=== PATIENT | male | born 1990 | race Caucasian/White ===

== ENCOUNTER 2020-02-03 13:48 | Emergency (ER) | payer MEDICAID, OTHER ==
--- NOTE | 2020-02-03 13:58 | ED Physician Documentation ---
PD HPI LOWER EXT INJURY - Stated complaint Stated Complaint: RT ANKLE INJURY - Chief complaint Chief Complaint: Trauma Ext - History obtained from History obtained from: Patient (He rolled his ankle 3 weeks ago, subsequently did it again yesterday. He has very mild pain over the proximal right metatarsal on the fifth. No other injuries. Needs a note for work. Pain is mild. Ambulation is fairly normal.) Review of Systems Constitutional: reports: Reviewed and negative Ears: reports: Reviewed and negative Nose: reports: Reviewed and negative PD PAST MEDICAL HISTORY - Past Medical History Cardiovascular: None Respiratory: None Endocrine/Autoimmune: None GI: None : None HEENT: None Psych: None Musculoskeletal: None Derm: None - Past Surgical History Past Surgical History: Yes - Present Medications Home Medications: Ambulatory Orders Medication Instructions Recorded Confirmed Cephalexin [Keflex] 500 mg PO QID #40 capsule 01/03/16 - Allergies Allergies/Adverse Reactions: Allergies Allergy/AdvReac Type Severity Reaction Status Date / Time No Known Drug Allergies Allergy Verified 02/03/20 13:50 - Social History Does the pt smoke?: No Smoking Status: Never smoker Does the pt drink ETOH?: Yes Does the pt have substance abuse?: No - Immunizations Immunizations are current?: Yes - POLST Patient has POLST: No PD ED PE NORMAL - Vitals Vital signs reviewed: Yes - General General: Alert and oriented X 3, No acute distress - Extremities Extremities: Other (His gait is normal. He has mild tenderness over the proximal fifth metatarsal of the right foot. No ankle tenderness except for very mildly over the ATFL but not the malleoli.) - Psych Psych: Normal mood, Normal affect Results - Vitals Vitals: Vital Signs - 24 hr 02/03/20 02/03/20 13:50 14:54 Temperature 36.5 C Heart Rate 69 78 Respiratory 16 19 Rate Blood Pressure 130/60 118/66 O2 Saturation 98 100 Oxygen O2 Source Room air - Rads (name of study) R foot 3v Radiology: EMP read contemporaneously (NAD) Departure - Departure Disposition: 01 Home, Self Care Clinical Impression: Right foot sprain Qualifiers: Encounter type: initial encounter Qualified Code(s): S93.601A - Unspecified sprain of right foot, initial encounter Condition: Good Record reviewed to determine appropriate education?: Yes Instructions: ED Sprain Foot Forms: Activity restrictions Discharge Date/Time: 02/03/20 15:06
--- NOTE | 2020-02-03 14:48 | XRAY Report ---
PROCEDURE: Foot 3 View RT INDICATIONS: foot injury TECHNIQUE: 3 views of the foot were acquired. COMPARISON: None FINDINGS: Bones: No fractures or dislocations. No suspicious bony lesions. Soft tissues: No tibiotalar joint effusion. Achilles tendon appears normal. IMPRESSION: No acute fracture. No osseous lesion. If symptoms and/or clinical suspicion for pathology continue, f urther assessment with repeat plain films, or advanced imaging (e.g., CT, MRI, or bone scan) is recom mended for further assessment. Reviewed by: Nory Oneal MD on 02/03/2020 2:46 PM PDT Approved by: Nory Oneal MD on 02/03/2020 2:46 PM PDT Station ID: [id number]
[2020-02-03 15:06] VITALS: BP 118/66
== END 2020-02-03 15:06 | disposition home or self-care (01) ==
LOC: ED 13:48
DX: S93.601A Unspecified sprain of right foot, initial encounter (principal); X50.1XXA Overexertion from prolonged static or awkward postures, initial encounter
CPT/HCPCS: 99282; 99283

== ENCOUNTER 2020-08-03 14:58 | Emergency (ER) | payer MEDICAID, OTHER ==
--- NOTE | 2020-08-03 15:19 | ED Physician Documentation ---
PD HPI CHEST PAIN - Stated complaint Stated Complaint: CHEST INJURY - Chief complaint Chief Complaint: Trauma Ch/Bk - History obtained from History obtained from: Patient - History of Present Illness Timing - onset: How many days ago (2) Timing - onset during: Exertion (he was pulling out heavy machinery with a winch and the cable hook slipped off the anchor it was on and snapped back into his left chest. Pain there but also feeling of uncomfortable breathing. SYmptoms continue to today.) Timing - duration: Days (2) Timing - details: Abrupt onset, Still present Quality: Aching, Dull, Pain Location: Substernal, Left chest Improved by: Rest Worsened by: Exertion, Inspiration. No: Movement, Palpation Associated symptoms: Shortness of air. No: Nausea, Feeling faint / dizzy Similar symptoms before: Has not had sx before Review of Systems Constitutional: denies: Fever, Chills Nose: denies: Rhinorrhea / runny nose, Congestion Throat: denies: Sore throat Cardiac: reports: Chest pain / pressure. denies: Palpitations, Pedal edema, Calf pain Respiratory: reports: Dyspnea. denies: Cough, Hemoptysis, Wheezing GI: denies: Abdominal Pain, Nausea, Vomiting, Diarrhea Skin: denies: Abrasion (s), Laceration (s) Musculoskeletal: denies: Neck pain, Back pain Neurologic: denies: Altered mental status, Head injury, LOC PD PAST MEDICAL HISTORY - Past Medical History Cardiovascular: None Respiratory: None Endocrine/Autoimmune: None GI: None : None HEENT: None Psych: None Musculoskeletal: None Derm: None - Past Surgical History Past Surgical History: Yes - Present Medications Home Medications: Ambulatory Orders Medication Instructions Recorded Confirmed No Known Home Medications 08/03/20 08/03/20 - Allergies Allergies/Adverse Reactions: Allergies Allergy/AdvReac Type Severity Reaction Status Date / Time No Known Drug Allergies Allergy Verified 08/03/20 15:04 - Social History Does the pt smoke?: No Smoking Status: Never smoker Does the pt drink ETOH?: Yes Does the pt have substance abuse?: No - Immunizations Immunizations are current?: Yes - POLST Patient has POLST: No PD ED PE NORMAL - Vitals Vital signs reviewed: Yes - General General: Alert and oriented X 3, No acute distress, Well developed/nourished - Neck Neck: Supple, no meningeal sign, No bony TTP, No adenopathy - Cardiac Cardiac: RRR, No murmur - Respiratory Respiratory: Clear bilaterally, Other (no chestwall tenderness nor bruising/deformity noted. ) - Abdomen Abdomen: Soft, Non tender - Derm Derm: Normal color, Warm and dry - Neuro Neuro: Alert and oriented X 3, No motor deficit, Normal speech Results - Vitals Vitals: Vital Signs - 24 hr 08/03/20 08/03/20 15:05 16:29 Temperature 37 C Heart Rate 80 62 Respiratory 16 16 Rate Blood Pressure 124/80 120/66 O2 Saturation 100 100 Oxygen O2 Source Room air - EKG (time done) 15:08 Rate: Rate (enter#) (79) Rhythm: NSR [place]: Normal Intervals: Normal CT QRS: Normal Ischemia: Normal ST segments. No: ST elevation c/w ischemia, ST depression - Rads (name of study) chest xray Radiology: Prelim report reviewed (no acute process), See rad report PD MEDICAL DECISION MAKING - ED course Complexity details: reviewed results, considered differential, d/w patient Departure - Departure Disposition: 01 Home, Self Care Clinical Impression: Chest wall contusion Qualifiers: Encounter type: initial encounter Laterality: left Qualified Code(s): S20.212A - Contusion of left front wall of thorax, initial encounter Condition: Stable Record reviewed to determine appropriate education?: Yes Instructions: ED Contusion Chest Wall Comments: Your chest xray is normal; no signs of lung injury nor rib fractures. Presume just sore in the deeper muscles. Activity as tolerated. Discharge Date/Time: 08/03/20 16:31
--- NOTE | 2020-08-03 16:10 | XRAY Report ---
PROCEDURE: Chest 2 View X-Ray INDICATIONS: struck in left chest; dyspnea TECHNIQUE: 2 view(s) of the chest. COMPARISON: Correlation is made with prior chest and ribs examination, 02/01/2015. FINDINGS: Surgical changes and devices: None. Lungs and pleura: No pleural effusions or pneumothorax. Lungs are clear. Mediastinum: Mediastinal contours are normal. Heart size is normal. Bones and chest wall: No suspicious bony abnormalities. No displaced rib fracture is detected. Soft tissues appear unremarkable. IMPRESSION: No pneumothorax or displaced rib fracture can be seen. Reviewed by: Damon Loving MD on 08/03/2020 3:08 PM [facility] Approved by: Damon Loving MD on 08/03/2020 3:08 PM [facility] Station ID: [id number]
[2020-08-03 16:29] VITALS: BP 120/66
== END 2020-08-03 16:31 | disposition home or self-care (01) ==
LOC: ED 14:58
DX: S20.212A Contusion of left front wall of thorax, initial encounter (principal); W31.89XA Contact with other specified machinery, initial encounter; Y99.0 Civilian activity done for income or pay
CPT/HCPCS: 1040M; 71046; 93005; 99283; 99284

== ENCOUNTER 2022-07-23 15:38 | Outpatient (CLI) | payer BC, MEDICAID ==
--- NOTE | 2022-08-01 07:50 | XRAY Report ---
PROCEDURE: Lumbar Spine 2 View INDICATIONS: LOW BACK PX TECHNIQUE: 3 views of the lumbar spine were acquired. COMPARISON: None. FINDINGS: Bones: 5 [id number] vertebrae are present. Trace dextrocurvature centered at the L2 level. Mild disc height loss at the L5-S1 level where there also is 2 mm retrolisthesis.. No vertebral body com pression fractures. No suspicious bony lesions. Soft tissues: Overlying bowel gas pattern is normal. No suspicious soft tissue calcifications. IMPRESSION: 1. Mild disc degeneration at the L5-S1 level where there also is grade 1 retrolisthesis. Reviewed by: BILL Nash on 08/01/2022 7:49 AM PST Approved by: Delaney Salter MD on 08/01/2022 7:49 AM PST Station ID: [id number]
== END 2022-07-23 23:59 | disposition home or self-care (01) ==
LOC: DI.N 15:38
PROVIDERS: ATTEND Registered Nurse
DX: M51.37 Other intervertebral disc degeneration, lumbosacral region (principal); M43.17 Spondylolisthesis, lumbosacral region

== ENCOUNTER 2022-11-24 21:11 | Outpatient (CLI) | payer BC ==
--- NOTE | 2022-11-25 17:16 | Ultrasound Report ---
PROCEDURE: Testicle INDICATIONS: PAIN IN LEFT TESTICLE TECHNIQUE: Real-time scanning was performed of the scrotum and testicles, with image documentation. Color and p ulse Doppler interrogation was performed of both testicles. COMPARISON: None. FINDINGS: Right: Testicle is normal in size at 4.7 x 2.7 x 2.6 cm, and homogenous in echotexture. Epididymis is normal in overall size and morphology. Trace hydrocele and mild varicoceles. Overlying scrotal sk in is normal in thickness. Left: Testicle is normal in size at 4.8 x 2.4 x 2.9 cm, and homogeneous in echotexture. Epididymis is normal in overall size and morphology. Trace hydrocele and mild varicoceles. Overlying scrotal sk in is normal in thickness. Doppler: Color and pulse Doppler demonstrate normal and symmetric arterial flow in both testicles. IMPRESSION: No torsion at time of exam. Intermittent torsion cannot be excluded. Bilateral hydroceles and varicoc eles are noted. Reviewed by: Danielle Garcia MD on 11/25/2022 5:15 PM PDT Approved by: Danielle Garcia MD on 11/25/2022 5:15 PM PDT Station ID: [id number]
== END 2022-11-24 21:12 | disposition home or self-care (01) ==
LOC: DI 21:11
PROVIDERS: ATTEND Urology
DX: N43.3 Hydrocele, unspecified (principal); I86.1 Scrotal varices

== ENCOUNTER 2024-03-31 22:58 | Emergency (ER) | payer BC ==
--- NOTE | 2024-03-31 23:16 | ED Physician Documentation ---
History of Present Illness - Stated complaint Stated Complaint: R LEG SWOLLEN - Chief complaint Chief Complaint: Ext Problem - Additonal information Additional information: 33-year-old male presents with right leg bruise. History clarified from triage notes. Patient states he has been driving long distances in the last month he noted a mildly swollen area on his anterior right thigh that became a bruise today. It is nontender. No fevers or chills. No spreading rash. No difficulty or pain moving his leg or ambulating. No history of DVT. No known family coagulation abnormalities. No lightheadedness, shortness breath, chest pain, syncope. No joint swelling. No trauma. No other new concerns. He was worried about a DVT. ROS Constitutional: no fever, no chills Eyes: no visual disturbance, no discharge Ears, Nose, Mouth, Throat: no rhinorrhea, no sore throat Cardiovascular: no chest pain, no palpitations Respiratory: no cough, no shortness of breath Gastrointestinal: no abdominal pain, no vomiting, no diarrhea Genitourinary: no dysuria, no hematuria Musculoskeletal: no back pain, no neck stiffness Skin: no rash, no wound Neurological: no focal weakness, no focal numbness PD PAST MEDICAL HISTORY - Past Medical History Cardiovascular: None Respiratory: None Endocrine/Autoimmune: None GI: None : None HEENT: None Psych: None Musculoskeletal: None Derm: None - Past Surgical History Past Surgical History: Yes - Present Medications Home Medications: Ambulatory Orders Medication Instructions Recorded Confirmed No Known Home Medications 08/03/20 08/03/20 - Allergies Allergies/Adverse Reactions: Allergies Allergy/AdvReac Type Severity Reaction Status Date / Time No Known Drug Allergies Allergy Verified 03/31/24 23:01 - Social History Does the pt smoke?: No Smoking Status: Never smoker Does the pt drink ETOH?: Yes Does the pt have substance abuse?: No - Immunizations Immunizations are current?: Yes - POLST Patient has POLST: No PD ED PE NORMAL - Free text exam Free text exam: Const: no acute distress, non toxic appearing; calm, conversant, pleasant Eyes: PERRLA, EOMI ENT: mucous membranes moist Neck: supple, non-tender Resp: no respiratory distress, clear to auscultation bilaterally Card: regular rate and rhythm, no murmurs Abd: non tender diffusely, no rigidity or rebound or guarding Back: no T or L spine tenderness, no CVA tenderness bilaterally Extrem: no deformities, no swelling bilateral lower extremities; there is a roughly 2 inch in length and 1 inch in width mild ecchymotic area to anterior right thigh that is nontender, without induration, crepitus, fluctuance; there is full range of motion of hip and knee without pain; no swelling or pain to calf or remainder of leg; no joint swelling; 2+ distal pulses; compartments soft, with fully intact strength and sensation throughout right lower extremity Neuro: ANOx4, thermodynamics teacher grossly intact, grossly intact sensation and strength all extremities Skin: no rash, warm and dry Results - Vitals Vitals: Vital Signs - 24 hr 03/31/24 23:01 Temperature 36.5 C Heart Rate 73 Respiratory 16 Rate Blood Pressure 133/80 H O2 Saturation 100 Oxygen O2 Source Room air PD Medical Decision Making - ED course ED course: This patients presentation is most suggestive of possible resolving superficial clot, without evidence of infection, with DVT far less likely. This is not consistent with fracture, muscle tear, cellulitis, necrotizing fasciitis. DVT is very unlikely clinically, however given patient's concerns and out of an abundance of caution, I will pursue DVT ultrasound. He declines medications. DVT US: I agree with radiology reads of imaging on my independent review of imaging, with rads read below. "FINDINGS: The deep veins are normally compressible, and free of intraluminal thrombus. Color and pulse Doppler demonstrate normal phasic intraluminal flow. There is normal augmentation response todistal compression maneuver. Targeted ultrasound of the region of concern in the thigh demonstratesno sonographic abnormality. IMPRESSION: No deep venous thrombosis of the visualized lower extremity. Reviewed by: Johnnie Gamboa MD on 04/01/2024 12:54 AM PDT " Resolved superficial clot still possible, as is contusion. Patient stable with no new concerns, appearing stable and suitable for discharge with follow-up and return precautions. Copy of US read given. Patient ambulatory and tolerating PO. Exams and vital signs reassuring. Patient questions answered and plan reviewed. Strong return precautions given. Patient discharged. Departure - Departure Disposition: 01 Home, Self Care Clinical Impression: Bruising Condition: Good Comments: It was a pleasure taking care of you today. It is important to fully read and understand the below. Please ask us if you have any questions. We think the most likely cause of your bruising is a resolved superficial clot or contusion. You do not have a blood clot in your deep veins on ultrasound, which is reassuring. Please see your primary doctor within 3 to 5 days to be reassessed. No tests or assessments are perfect, and your condition could change management specialist time. If your symptoms change or worsen, it is very important you immediately seek medical care. If you have any new or worsening pain, swelling, lightheadedness or passing out, shortness of breath, redness, rash, fever, numbness, weakness, bleeding, difficulty using your body, or anything else that concerns you, please immediately seek medical care. If you have been prescribed any medications: please read the drug package inserts on how to properly use the medication and any potential side effects. If you had labs (blood tests) or imaging (CT scan or x-rays) done during your visit: please follow up on the results of these with your primary care doctor, as discussed. In addition, please know the results we received today may be preliminary. Our usual practice is to follow up on tests within a few days of a patient's discharge from the Emergency Department and notify you of any changes. These may lead to changes to your treatment plan. However, the best way to obtain and interpret these test results is through your Primary Care Provider. If you need to update your contact information, please stop by the assistant front desk manager and alert the Registration personnel before you leave the Emergency Department. Thank you for the opportunity to participate in your healthcare. We are always here and happy to see you in the future. --- YOUR ULTRASOUND RESULT: "FINDINGS: The deep veins are normally compressible, and free of intraluminal thrombus. Color and pulse Doppler demonstrate normal phasic intraluminal flow. There is normal augmentation response todistal compression maneuver. Targeted ultrasound of the region of concern in the thigh demonstratesno sonographic abnormality. IMPRESSION: No deep venous thrombosis of the visualized lower extremity. Reviewed by: Johnnie Gamboa MD on 04/01/2024 12:54 AM PDT " Forms: PCP List
--- NOTE | 2024-04-01 00:55 | Ultrasound Report ---
PROCEDURE: Duplex Ext Veins Right INDICATIONS: assess for DVT TECHNIQUE: Real-time imaging, as well as color and pulse Doppler interrogation, were performed of the lower extr emity deep veins from the inguinal ligament to the popliteal fossa. Attempted visualization of the ca lf veins was performed. COMPARISON: None. FINDINGS: The deep veins are normally compressible, and free of intraluminal thrombus. Color and pu lse Doppler demonstrate normal phasic intraluminal flow. There is normal augmentation response to di stal compression maneuver. Targeted ultrasound of the region of concern in the thigh demonstrates no sonographic abnormality. IMPRESSION: No deep venous thrombosis of the visualized lower extremity. Reviewed by: Johnnie Gamboa MD on 04/01/2024 12:54 AM PDT Approved by: Johnnie Gamboa MD on 04/01/2024 12:54 AM PDT Station ID: [id number]
[2024-04-01 01:45] VITALS: BP 129/83; O2SAT 98
== END 2024-04-01 01:40 | disposition home or self-care (01) ==
LOC: ED 22:58
DX: R58 Hemorrhage, not elsewhere classified (principal)
CPT/HCPCS: 99283; 99284